=== PATIENT | male | born 1960 | race Caucasian/White ===

== ENCOUNTER 2018-09-13 15:30 | Inpatient (IN) | payer MEDICAID ==
[~2018-09-13] VITALS: Ht 177.8 cm; Wt 70.3 kg
[2018-09-13] MEDS ORDERED: FEE PK DOSING 1 MIN EA MC ONE (15:35)
--- NOTE | 2018-09-13 15:40 | NUR ---
PT RAJEEV FROM THE STREETS FOR A GLF WITNESSED BY BYSTANDER ABRASIONS NOTED TO RIGHT FOREHEAD AND LEFT FOREARM. PT ON MONITOR IN BED 12. AOX1. WILL CONTINUE TO MONITOR.
[2018-09-13] MEDS ORDERED: IV NS 0.9% 1,000 ML BAG IV ONE (16:00)
[2018-09-13] MEDS ORDERED: PIPERACILLIN /TAZOBACTAM 3.375 G in IV D5W 50 ML IV ONE (16:00)
[2018-09-13] MEDS ORDERED: VANCOMYCIN 1 GM in IV D5W 250 ML IV ONE (16:00)
[2018-09-13] MEDS ORDERED: ACETAMINOPHEN 650 MG/SUPP.RECT RC ONE (16:15)
[2018-09-13 16:25] LABS: BASOPHILS # (AUTO) 0.1 /CMM (0.0-0.2); BASOPHILS % (AUTO) 0.4 % (0.0-2.0); EOSINOPHILS % (AUTO) 0.2 % (0.0-6.0); HEMATOCRIT 37 % (39-51); HEMOGLOBIN 12.3 g/dL (13.5-17.5); LYMPHOCYTES # (AUTO) 0.8 /CMM (0.8-4.8); LYMPHOCYTES % (AUTO) 4.6 % (20.0-44.0); MEAN CORPUSCULAR HGB CONC 34 g/dl (31.0-36.0); MEAN CORPUSCULAR VOLUME 100 fL (80-96); MONOCYTES # (AUTO) 0.6 /CMM (0.1-1.30); MONOCYTES % (AUTO) 3.7 % (2.0-12.0); NEUTROPHILS # (AUTO) 15.6 /CMM (1.8-8.9); NEUTROPHILS % (AUTO) 91.1 % (43.0-81.0); PLATELET COUNT (AUTO) 420 /CMM (150-450); RED BLOOD CELL COUNT(AUTO) 3.66 MIL/uL (4.5-6.0); WHITE BLOOD COUNT (AUTO) 17.1 K/uL (4.3-11.0)
[2018-09-13] MEDS ORDERED: ACETAMINOPHEN 325 MG TABLET PO ONE (16:30)
[2018-09-13] MEDS ORDERED: KETOROLAC TROMETHAMINE INJ 30 MG/ML VIAL IV ONE (16:30)
[2018-09-13 16:48] LABS: CALCIUM, SERUM 8.1 mg/dL (8.5-10.1); CARBON DIOXIDE 23 mmol/L (21-32); CHLORIDE 99 mmol/L (98-107); CREATININE 0.9 mg/dL (0.6-1.3); GLUCOSE 112 mg/dL (74-106); POTASSIUM 4.1 mmol/L (3.5-5.1); SODIUM SERUM 133 mmol/L (136-145); UREA NITROGEN, BLOOD 4 mg/dL (7-18)
[2018-09-13] MEDS ORDERED: KETOROLAC TROMETHAMINE INJ 30 MG/ML VIAL ONE (16:51)
[2018-09-13] MEDS ORDERED: ACETAMINOPHEN ES 500 MG TABLET ONE (16:52)
[2018-09-13 16:55] LABS: ALANINE AMINOTRANSFERASE 23 U/L (12-78); ALBUMIN 2.5 g/dL (3.4-5.0); ALKALINE PHOSPHATASE 100 U/L (46-116); ASPARTATE AMINOTRANSFERASE 44 U/L (15-37); BILIRUBIN,DIRECT 0.3 mg/dL (0.0-0.2); TOTAL PROTEIN, SERUM 8.6 g/dL (6.4-8.2)
--- NOTE | 2018-09-13 17:04 | NUR ---
PT TAKEN TO RADIOLOGY FOR CT VIA CHRIS
--- NOTE | 2018-09-13 17:07 | NUR ---
LACTIC ACID 2.0. MD NOTIFED.
--- NOTE | 2018-09-13 17:25 | NUR ---
RADIOLOGY AT BEDSIDE FOR XRAY
[2018-09-13] MEDS ORDERED: HYDROCODONE/APAP 5/325MG 1 EACH TABLET PO PRN (18:30)
[2018-09-13] MEDS ORDERED: Z GUARD REMEDY 2 OZ OINT TP PRN (18:30)
[2018-09-13] MEDS ORDERED: ZOLPIDEM TARTRATE 5 MG TABLET PO PRN (18:30)
[2018-09-13] MEDS ORDERED: ACETAMINOPHEN 325 MG TABLET PO PRN (18:30)
[2018-09-13] MEDS ORDERED: ONDANSETRON HCL/PF 4 MG/2 ML VIAL IVP PRN (18:30)
[2018-09-13] MEDS ORDERED: MAGNESIUM HYDROXIDE 30 ML UDC PO PRN (18:30)
[2018-09-13] MEDS ORDERED: MAG HYDROX/AL HYDROX/SIMETH 30 ML UDC PO PRN (18:30)
--- NOTE | 2018-09-13 19:34 | NUR ---
GAVE REPORT TO CHERELLE QUIROZ FOR AMAURY
--- NOTE | 2018-09-13 22:23 | NUR ---
ANGELIQUE VILLARREALSTUNNER TRANSPORTING PT WITH EMT TO TELE 1ST FLOOR IN GUARDED CONDITION
--- NOTE | 2018-09-13 22:30 | NUR ---
RN ADMITTING TELE NOTES RECEIVED PT FROM ER, REPORT GIVEN BY MOTOR VEHICLE ASSEMBLY SUPERVISOR, ADMITTED FOR SEPSIS, LACTIC 2.0, SEPSIS PROTOCOL INITIATED, DR HUTSON ADMITTING, ORDERS ENTERED PER PROTOCOL, PT AOX3 ON R/A, DENIES ANY PAIN, W/ SKIN ISSUES NOTED PICTURES TAKEN, WOUND CONSULT ORDERED, IV ON RT/AC#18G, NS@100ML/HR TO BE CONT', PT HOMELESS, GROOMED UPON ARRIVAL, ABLE TO AMBULATE FROM [facility], SAFETY MEASURES IN PLACE, ABX IVPB CONT' ORDERED, VS STABLE, CL W//R, WILL CONT TO MONITOR PT LABS.
[2018-09-13 23:03] VITALS: BP 126/80
[2018-09-13] MEDS ORDERED: PIPERACILLIN /TAZOBACTAM 3.375 G VIAL IV ONE (23:49)
[2018-09-13] MEDS ORDERED: VANCOMYCIN 1 GM VIAL ONE (23:50)
[2018-09-14] MEDS: ZOSYN IVPB 3.375 G in IV D5W 50ml IV SCH ×4 (00:12→17:02)
[2018-09-14 00:18] VITALS: BP 124/75
[2018-09-14] MEDS: VANCOMYCIN 0.75 GM in IV D5W 250 ML IV SCH ×4 (00:55→23:04)
[2018-09-14 04:16] VITALS: BP 117/55
--- NOTE | 2018-09-14 06:20 | NUR ---
PRODUCTION MATERIAL HANDLER CLOSING NOTE PT ENDORSED IN STABLE COND', LABS LACTIC TRENDING DOWN, ALL NEEDS ATTENDED, KEPT CLEAN AND DRY, IV FLUIDS CONT' ORDERED.
[2018-09-14 06:39] LABS: BASOPHILS # (AUTO) 0.1 /CMM (0.0-0.2); BASOPHILS % (AUTO) 0.7 % (0.0-2.0); EOSINOPHILS % (AUTO) 0.8 % (0.0-6.0); HEMATOCRIT 32 % (39-51); HEMOGLOBIN 10.9 g/dL (13.5-17.5); LYMPHOCYTES # (AUTO) 0.9 /CMM (0.8-4.8); LYMPHOCYTES % (AUTO) 9.5 % (20.0-44.0); MEAN CORPUSCULAR HGB CONC 34 g/dl (31.0-36.0); MEAN CORPUSCULAR VOLUME 99 fL (80-96); MONOCYTES # (AUTO) 0.7 /CMM (0.1-1.30); MONOCYTES % (AUTO) 6.9 % (2.0-12.0); NEUTROPHILS # (AUTO) 7.9 /CMM (1.8-8.9); NEUTROPHILS % (AUTO) 82.1 % (43.0-81.0); PLATELET COUNT (AUTO) 313 /CMM (150-450); RED BLOOD CELL COUNT(AUTO) 3.21 MIL/uL (4.5-6.0); WHITE BLOOD COUNT (AUTO) 9.7 K/uL (4.3-11.0)
[2018-09-14] MEDS: IV NS 0.9% 1,000 ML IV PRN ×2 (06:42→17:45)
[2018-09-14 06:55] LABS: CALCIUM, SERUM 7.6 mg/dL (8.5-10.1); CREATININE 0.9 mg/dL (0.6-1.3); POTASSIUM 3.5 mmol/L (3.5-5.1)
[2018-09-14 07:02] LABS: MAGNESIUM 1.1 mg/dL (1.8-2.4)
--- NOTE | 2018-09-14 07:30 | NUR ---
MANAGER STEEL NOTE: RECEIVED PATIENT IN BED, AWAKE AND ALERT TO HIS NAME. DENIED ANY PAIN. RESPIRATION EVEN AND UNLABORED SATURATING 98% IN ROOM AIR. ON FILTER TANK TENDER SR HR- 86. HOB ELEVATED AT 35 DEGREE. (R) AC IV SITE REMAINED PATENT AND INTACT WITH NS @100ML/HR. BED ALARMED AND LOCKED AT ALL TIMES. CALL LIGHT WITHIN REACH. NEEDS ANTICIPATED.
[2018-09-14 08:00] VITALS: BP 138/87
[2018-09-14] MEDS: THIAMINE HCL 100 MG TABLET PO SCH (08:04)
[2018-09-14] MEDS: FOLIC ACID 1 MG TABLET PO SCH (08:04)
[2018-09-14] MEDS: MULTIVITAMINS,THERAGRAN 1 UDTAB TABLET PO SCH (08:04)
[2018-09-14] MEDS: Magnesium 1GM/D5W 100ML PREMIX 100 ML IV SCH ×2 (09:18→10:19)
[2018-09-14 16:00] VITALS: BP 128/84
--- NOTE | 2018-09-14 16:30 | NUR ---
MS RN NOTE: PATIENT WAS OBSERVED HAVING EPISODES OF HAVING SOAKED DIAPER AND WAS UNABLE TO USE URINAL WHENEVER HE HAS THE URGE TO URINATE. PLACED A CONDOM CATHETER ON THE PATIENT IN ORDER TO AVOID SKIN BREAKDOWN AND TO PREVENT MOISTURE ON THE AREA. PATIENT WAS OK WITH IT AND TOLERATED THE CONDOM CATHETER INSERTION.
[2018-09-14] MEDS: LACTOBACILLUS RHAMNOSUS GG 1 EACH CAP.SPRINK PO SCH (17:02)
--- NOTE | 2018-09-14 19:30 | NUR ---
MS RN NOTE: REPORT GIVEN TO PM SHIFT NURSE FOR CONTINUITY OF CARE. PATIENT REMAINED ON STABLE CONDITION AND ATE 100% OF HIS DINNER MEAL.
--- NOTE | 2018-09-14 19:48 | NUR ---
MS RN NOTES RECEIVE PT IN BED A/O X 2-3, NO PAIN AT THIS TIME. IN STABLE CONDITION, NOT IN DISTRESS, SAFETY MEASURES IN PLACE. WILL CONTINUE TO MONITOR.
[2018-09-14 20:00] VITALS: BP 147/83
[2018-09-15] MEDS: ZOSYN IVPB 3.375 G in IV D5W 50ml IV SCH ×2 (00:36→05:24)
[2018-09-15 04:00] VITALS: BP 114/65
[2018-09-15] MEDS: IV NS 0.9% 1,000 ML IV PRN (05:24)
--- NOTE | 2018-09-15 06:08 | NUR ---
MS RN CLOSING NOTES REMAINS STABLE. TOLERATING ROOM AIR 98%. ALL NURSING CARE RENDERED. KEPT CLEAN AND DRY AND COMFORTABLE, NEEDS ATTENDED AND ANTICIPATED. GOOD SKIN CARE PROVIDED, ON LOW BED AT ALL TIMES TO ENSURE SAFETY. SAFE HAZARD FREE ENVIRONMENT PROVIDED. CALL LIGHT WITHIN EASY TO REACH. WILL ENDORSE NEXT SHIFT CONTINUITY OF CARE
--- NOTE | 2018-09-15 07:30 | NUR ---
MS RN NOTE: RECEIVED PATIENT IN BED, AWAKE AND ALERT TO HIS NAME. DENIED ANY PAIN. RESPIRATION EVEN AND UNLABORED SATURATING 100% IN ROOM AIR. HOB ELEVATED AT 35 DEGREE. (R) AC IV SITE REMAINED PATENT AND INTACT WITH NS @100ML/HR. BED ALARMED AND LOCKED AT ALL TIMES. CALL LIGHT WITHIN REACH. NEEDS ANTICIPATED. PER PM SHIFT NURSE THE PATIENT REMOVED THE CONDOM CATHETER, AND THE NURSE EDUCATED THE PATIENT TO USE THE URINAL. PATIENT AGREED TO IT AND WILL CONTINUE TO MONITOR.
[2018-09-15 07:48] LABS: CALCIUM, SERUM 7.8 mg/dL (8.5-10.1); CREATININE 0.9 mg/dL (0.6-1.3); POTASSIUM 3.5 mmol/L (3.5-5.1)
[2018-09-15 08:00] VITALS: BP 112/73
[2018-09-15 08:06] LABS: BASOPHILS % (AUTO) 0.7 % (0.0-2.0); HEMATOCRIT 32 % (39-51); HEMOGLOBIN 10.8 g/dL (13.5-17.5); LYMPHOCYTES # (AUTO) 1.1 /CMM (0.8-4.8); LYMPHOCYTES % (AUTO) 16.9 % (20.0-44.0); MEAN CORPUSCULAR HGB CONC 34 g/dl (31.0-36.0); MEAN CORPUSCULAR VOLUME 100 fL (80-96); MONOCYTES # (AUTO) 0.7 /CMM (0.1-1.30); MONOCYTES % (AUTO) 10.7 % (2.0-12.0); NEUTROPHILS # (AUTO) 4.7 /CMM (1.8-8.9); NEUTROPHILS % (AUTO) 69.7 % (43.0-81.0); PLATELET COUNT (AUTO) 338 /CMM (150-450); RED BLOOD CELL COUNT(AUTO) 3.24 MIL/uL (4.5-6.0); WHITE BLOOD COUNT (AUTO) 6.7 K/uL (4.3-11.0)
[2018-09-15 08:14] LABS: MAGNESIUM 1.3 mg/dL (1.8-2.4); PHOSPHORUS 3.5 mg/dL (2.5-4.9)
[2018-09-15] MEDS: VANCOMYCIN 0.75 GM in IV D5W 250 ML IV SCH ×3 (08:39→23:27)
--- NOTE | 2018-09-15 08:40 | NUR ---
MS RN NOTE: CALLED AND SPOKE WITH LISANDRO, PHARMACIST AND MADE HIM AWARE OF THE PATIENT'S VANCOMYCIN TROUGH OF 12. PER LISANDRO, OK TO GIVE THE DOSE OF VANCOMYCIN 0.75 GM IV.
[2018-09-15] MEDS: THIAMINE HCL 100 MG TABLET PO SCH (08:58)
[2018-09-15] MEDS: FOLIC ACID 1 MG TABLET PO SCH (08:58)
[2018-09-15] MEDS: LACTOBACILLUS RHAMNOSUS GG 1 EACH CAP.SPRINK PO SCH ×2 (08:58→16:20)
[2018-09-15] MEDS: MULTIVITAMINS,THERAGRAN 1 UDTAB TABLET PO SCH (08:58)
[2018-09-15] MEDS: Magnesium 1GM/D5W 100ML PREMIX 100 ML IV SCH ×2 (10:48→12:01)
[2018-09-15 16:00] VITALS: BP 162/78
--- NOTE | 2018-09-15 19:30 | NUR ---
MS RN NOTE: REPORT GIVEN TO PM SHIFT NURSE FOR CONTINUITY OF CARE. PATIENT ON STABLE CONDITION. INFORMED PM SHIFT NURSE THAT PATIENT PULLED OUT HIS (R) AC IV SITE AND A NEW LINE WAS INSERTED ON THE (R) FOREARM 20G INFUSING NS @100ML/HR.
[2018-09-15 20:00] VITALS: BP 150/91
[2018-09-16 04:00] VITALS: BP 157/91
--- NOTE | 2018-09-16 07:26 | NUR ---
MS RN OPENING NOTES RECEIVED PT FROM NIGHTSHIFT RN IN STABLE CONDITION. PT IS A/O X2. NO SOB OR ACUTE SIGNS OF DISTRESS NOTED. BREATHING IS EVEN AND UNLABORED. PT ON RA AND SATING WELL. HE DENIES ANY PAIN AT THIS TIME. IV TO RIGHT FA NOTED TO BE PATENT AND INTACT. NO REDNESS OR SIGNS OF INFILTRATION NOTED. WOUND DRESSINGS NOTED TO BE CLEAN, DRY, AND INTACT. DRESSING CHANGE JUST PERFORMED BY PM NURSE. BED IN LOW LOCKED POSITION. SIDE RAILS UP X2, CALL LIGHT WITHIN REACH, BED ALARM ON. WILL CONTINUE TO MONITOR
[2018-09-16 07:28] LABS: BASOPHILS # (AUTO) 0.1 /CMM (0.0-0.2); BASOPHILS % (AUTO) 1.1 % (0.0-2.0); EOSINOPHILS % (AUTO) 2.8 % (0.0-6.0); HEMATOCRIT 35 % (39-51); HEMOGLOBIN 11.6 g/dL (13.5-17.5); LYMPHOCYTES # (AUTO) 1.1 /CMM (0.8-4.8); LYMPHOCYTES % (AUTO) 17.7 % (20.0-44.0); MEAN CORPUSCULAR HGB CONC 34 g/dl (31.0-36.0); MEAN CORPUSCULAR VOLUME 99 fL (80-96); MONOCYTES # (AUTO) 0.6 /CMM (0.1-1.30); MONOCYTES % (AUTO) 10.6 % (2.0-12.0); NEUTROPHILS # (AUTO) 4.1 /CMM (1.8-8.9); NEUTROPHILS % (AUTO) 67.8 % (43.0-81.0); PLATELET COUNT (AUTO) 330 /CMM (150-450); RED BLOOD CELL COUNT(AUTO) 3.48 MIL/uL (4.5-6.0)
[2018-09-16 07:59] LABS: CALCIUM, SERUM 8.1 mg/dL (8.5-10.1); CREATININE 0.8 mg/dL (0.6-1.3); MAGNESIUM 1.3 mg/dL (1.8-2.4); PHOSPHORUS 3.8 mg/dL (2.5-4.9); POTASSIUM 3.8 mmol/L (3.5-5.1)
[2018-09-16 08:00] VITALS: BP 135/82
[2018-09-16] MEDS: LACTOBACILLUS RHAMNOSUS GG 1 EACH CAP.SPRINK PO SCH ×2 (08:18→16:31)
[2018-09-16] MEDS: MULTIVITAMINS,THERAGRAN 1 UDTAB TABLET PO SCH (08:18)
[2018-09-16] MEDS: VANCOMYCIN 0.75 GM in IV D5W 250 ML IV SCH ×2 (08:18→16:31)
[2018-09-16] MEDS: THIAMINE HCL 100 MG TABLET PO SCH (08:18)
[2018-09-16] MEDS: FOLIC ACID 1 MG TABLET PO SCH (08:18)
--- NOTE | 2018-09-16 09:21 | NUR ---
WOUND CARE CONSULT: PT PRESENTS WITH MULTIPLE DRY ABRASIONS AND SCARS TO TRUNK OF BODY AND LEGS/FEET WELL OPEN WOUNDS TO RT HAND AND LEFT ARM, PRESENT ON ADMISSION. RECOMMEND SURGICAL CONSULT. PT ABLE TO ASSIST WITH TURNING AND REPOSITIONING IN BED AND IS CONTINENT AT THIS TIME. WILL SEE PRN. CURRENT OSVALDO SCORE IS 19. MD IN AGREEMENT WITH PLAN OF CARE. Addendum: 09/16/18 at 0922 by JOHN BOYLE WNDNU Amended: Links added.
--- NOTE | 2018-09-16 10:59 | NUR ---
Social service consult requested by Dr. Brandon for homelessness. Pt. is a 58 year old male who was admitted to [facility] for severe sepsis. SW met with pt. bedside. Pt. is alert and oriented x 3. Pt. was polite and cooperative with SW during the assessment. Pt. is homeless. Pt. states he has been homeless for the past 15 years and has been living in between shelters and sober livings. Pt. states he has been living by the amish on [facility] that offers him senior living, food and clothing. Pt. receives approximately $900/ month in SSI. Pt. denies any drug, alcohol and cigarette use. Pt. does have a history of alcohol abuse. Pt. denies any psychiatric diagnosis at this time. SW offered pt. [facility] placement, however pt. declined stating he wants to go back to the [facility]. Pt. states , he is able to transport himself via bus. Pt. couldn't give SW the address to the am[facility] but states he knows how to get there via bus. Pt. states he will need a pair of clothes and shoes upon discharge since he has no clothing. SW to give pt. clothing prior to discharge. Pt. to sign Homeless Patient Waiver form prior to discharge. No other social service needs are requested at this time. SW is available, if needed.
[2018-09-16] MEDS: Magnesium 1GM/D5W 100ML PREMIX 100 ML IV SCH ×2 (11:41→13:01)
[2018-09-16 16:00] VITALS: BP 155/97
--- NOTE | 2018-09-16 18:31 | NUR ---
MS RN CLOSING NOTES PT REMAINS STABLE. ALL NEEDS MET DURING SHIFT AND ORDERS CARRIED OUT ACCORDINGLY. ALL DUE MEDS GIVEN . PRN AND WOUND CARE COMPLETED. DRESSINGS REMAINS CLEAN, DRY AND INTACT. IV REMAINS PATENT AND INTACT. SAFETY MEARES IN PLACE. WILL ENDORSE TO NIGHTSHIFT RN FOR AMAURY
--- NOTE | 2018-09-16 19:20 | NUR ---
MS RN OPENING NOTES RECEIVED PT FROM AM RN IN STABLE CONDITION. PT IS A/O X2 WITH PERIODS OF CONFUSION. . NO SOB OR ACUTE SIGNS OF DISTRESS NOTED. BREATHING IS EVEN AND UNLABORED. PT ON RA AND SATING WELL. HE DENIES ANY PAIN AT THIS TIME. IV TO RIGHT FA NOTED, PATENT AND INTACT. NO REDNESS OR SIGNS OF INFILTRATION NOTED. LEFT HAND WOUND DRESSINGS CLEAN, DRY, AND INTACT. BED IN LOW LOCKED POSITION. SIDE RAILS UP X2, CALL LIGHT WITHIN REACH, BED ALARM ON. WILL CONTINUE TO MONITOR CLOSELY.
[2018-09-16 20:00] VITALS: BP 141/69
[2018-09-17] MEDS: VANCOMYCIN 0.75 GM in IV D5W 250 ML IV SCH ×2 (00:13→08:00)
[2018-09-17 04:00] VITALS: BP 157/77
[2018-09-17 06:14] LABS: BASOPHILS % (AUTO) 1.1 % (0.0-2.0); EOSINOPHILS % (AUTO) 3.8 % (0.0-6.0); HEMATOCRIT 34 % (39-51); HEMOGLOBIN 11.4 g/dL (13.5-17.5); LYMPHOCYTES # (AUTO) 1.3 /CMM (0.8-4.8); LYMPHOCYTES % (AUTO) 29.6 % (20.0-44.0); MEAN CORPUSCULAR HGB CONC 34 g/dl (31.0-36.0); MEAN CORPUSCULAR VOLUME 99 fL (80-96); MONOCYTES # (AUTO) 0.7 /CMM (0.1-1.30); MONOCYTES % (AUTO) 16.4 % (2.0-12.0); NEUTROPHILS # (AUTO) 2.2 /CMM (1.8-8.9); NEUTROPHILS % (AUTO) 49.1 % (43.0-81.0); PLATELET COUNT (AUTO) 333 /CMM (150-450); RED BLOOD CELL COUNT(AUTO) 3.41 MIL/uL (4.5-6.0); WHITE BLOOD COUNT (AUTO) 4.5 K/uL (4.3-11.0)
--- NOTE | 2018-09-17 06:18 | NUR ---
MS RN CLOSING NOTES PATIENT REMAINS STABLE THROUGH OUT THE NIGHT. TOLERATING ROOM AIR 96%. ALL NURSING CARE RENDERED. KEPT CLEAN AND DRY AND COMFORTABLE, NEEDS ATTENDED AND ANTICIPATED. GOOD SKIN CARE PROVIDED, ON LOW BED AT ALL TIMES TO ENSURE SAFETY. SAFE HAZARD FREE ENVIRONMENT PROVIDED. CALL LIGHT WITHIN EASY TO REACH. WILL ENDORSE NEXT SHIFT CONTINUITY OF CARE
[2018-09-17 06:24] LABS: CALCIUM, SERUM 8.3 mg/dL (8.5-10.1); CREATININE 0.8 mg/dL (0.6-1.3); POTASSIUM 3.8 mmol/L (3.5-5.1)
[2018-09-17 08:00] VITALS: BP 168/94
[2018-09-17] MEDS ORDERED: NEOMY SULF/BACITRAC ZN/POLY 15 GM TUBE TP SCH (09:00)
[2018-09-17] MEDS: FOLIC ACID 1 MG TABLET PO SCH (09:00)
[2018-09-17] MEDS: THIAMINE HCL 100 MG TABLET PO SCH (09:00)
[2018-09-17] MEDS: MULTIVITAMINS,THERAGRAN 1 UDTAB TABLET PO SCH (09:00)
[2018-09-17] MEDS: LACTOBACILLUS RHAMNOSUS GG 1 EACH CAP.SPRINK PO SCH (09:00)
--- NOTE | 2018-09-17 11:47 | NUR ---
RECEIVED PT FROM AM RN IN STABLE CONDITION. PT IS A/O X2 WITH PERIODS OF CONFUSION. . NO SOB OR ACUTE SIGNS OF DISTRESS NOTED. BREATHING IS EVEN AND UNLABORED. PT ON RA AND SATING WELL. HE DENIES ANY PAIN AT THIS TIME. IV TO RIGHT FA NOTED, PATENT AND INTACT. NO REDNESS OR SIGNS OF INFILTRATION NOTED. LEFT HAND WOUND DRESSINGS CLEAN, DRY, AND INTACT. BED IN LOW LOCKED POSITION. SIDE RAILS UP X2, CALL LIGHT WITHIN REACH, BED ALARM ON. WILL CONTINUE TO MONITOR and treat.
[2018-09-17] MEDS ORDERED: SULF1TAB48 PO (11:59)
--- NOTE | 2018-09-17 13:00 | NUR ---
SW met with pt. and gave him some clothing and shoes. Pt. was given the following resources: [phone] [facility] list which included roller picker location at [address] for a van to roller picker pt. for [facility]; list of Food referrals and list of medical clinics as well. CAMILO offered pt. taxi voucher to roller picker location, however pt. declined and preferred to get bus tokens. Homeless Patient Waiver form was signed by the pt. and placed in pt's chart. No other social service needs are requested at this time. SW is available, if needed. CAMILO updated KAYCEE Baldwin regarding pt's discharge plan. Nursing shift supervisor rn Rhonda was informed regarding bus tokens.
--- NOTE | 2018-09-17 13:05 | NUR ---
patient for discharge to senior care,unable to finish discharge photo pt. refused and doesnt want to be bothered verbalized"I AM LEAVING NOW",explained the importance of discharge photo documentation still refused.discharge paper and prescription given,director social discussed w/ pt. senior care and agreed to leave with bus token.
--- NOTE | 2018-09-17 13:20 | NUR ---
patient discharged in stable condition. Patient told to follow up with primary care provider in 1 week. Patient verbalized understanding. All belongings sent home with patient. Patient given bus tokins and wheeled out of the hospital. Patient left in stable condition.
== END 2018-09-17 13:24 | disposition home or self-care (01) | DRG 710 ==
LOC: ER 15:34 → TELE1 19:43 → MEDSG1 09-14 08:48
PROVIDERS: ADMIT Internal Medicine; ATTEND Internal Medicine
PROC: 0KBB0ZZ Excision of Left Lower Arm and Wrist Muscle, Open Approach (ICD-10-PCS; principal; 2018-09-16)
DX: A41.9 Sepsis, unspecified organism (principal); G92 Toxic encephalopathy; E43 Unspecified severe protein-calorie malnutrition; E83.42 Hypomagnesemia; D64.9 Anemia, unspecified; E87.1 Hypo-osmolality and hyponatremia; Z59.0 Homelessness; E86.1 Hypovolemia; E88.09 Other disorders of plasma-protein metabolism, not elsewhere classified; M62.50 Muscle wasting and atrophy, not elsewhere classified, unspecified site; Z68.22 Body mass index [BMI] 22.0-22.9, adult; F10.21 Alcohol dependence, in remission; X58.XXXA Exposure to other specified factors, initial encounter; Y93.9 Activity, unspecified; Y92.9 Unspecified place or not applicable; S71.001A Unspecified open wound, right hip, initial encounter; L03.114 Cellulitis of left upper limb; L98.8 Other specified disorders of the skin and subcutaneous tissue; S51.812A Laceration without foreign body of left forearm, initial encounter; S01.00XA Unspecified open wound of scalp, initial encounter; S51.811A Laceration without foreign body of right forearm, initial encounter; S41.001A Unspecified open wound of right shoulder, initial encounter
CPT/HCPCS: 36415; 70450-TC; 71045-TC; 72125-TC; 73090-TC; 73130-TC; 80048-TC; 80076-TC; 80202-TC; 83605-TC; 83735-TC; 84100-TC; 84484-TC; 85025-TC; 85730-TC; 87040-TC; 87081-TC; A4217; A4349; A4606; A6253; A6403; G0378; J1885; J2543; J3370; J3475; J7030; J7060; Z7610

== ENCOUNTER 2019-12-02 13:46 | Inpatient (IN) | payer MEDICAID, OTHER ==
[~2019-12-02] VITALS: Ht 182.9 cm; Wt 68.5 kg
[~2019-12-02 13:46] MED LIST: SULF1TAB48 PO
--- NOTE | 2019-12-02 13:46 | NUR ---
BIB RA 39,SHOULDER PAIN AND LACERATION TO LEFT EYEBROW,S/P WITNESSED GLF AT A SIDEWALK,W/ HARD COLLAR UPON ARRIVAL, pt to bed 7, awake, alert, -sob, placed on monitor, vss, nad noted. pending md abraham
[2019-12-02] MEDS ORDERED: IV NS 0.9% 1,000 ML BAG IV ONE ×2 (14:30→17:30)
[2019-12-02] MEDS ORDERED: TDAP [DIPH/PERTUSSIS/TET] 0.5 ML VIAL IM ONE ×2 (14:30→14:44)
[2019-12-02 15:14] LABS: CALCIUM, SERUM 8.3 mg/dL (8.5-10.1); CARBON DIOXIDE 22 mmol/L (21-32); CHLORIDE 100 mmol/L (98-107); CREATININE 1.5 mg/dL (0.6-1.3); GLUCOSE 124 mg/dL (74-106); POTASSIUM 3.5 mmol/L (3.5-5.1); SODIUM SERUM 134 mmol/L (136-145); UREA NITROGEN, BLOOD 11 mg/dL (7-18)
[2019-12-02 15:15] LABS: BASOPHILS # (AUTO) 0.3 /CMM (0.0-0.2); EOSINOPHILS % (AUTO) 0.2 % (0.0-6.0); HEMATOCRIT 37 % (39-51); HEMOGLOBIN 12.5 g/dL (13.5-17.5); LYMPHOCYTES # (AUTO) 0.7 /CMM (0.8-4.8); LYMPHOCYTES % (AUTO) 5.6 % (20.0-44.0); MEAN CORPUSCULAR HGB CONC 34 g/dl (31.0-36.0); MEAN CORPUSCULAR VOLUME 99 fL (80-96); MONOCYTES # (AUTO) 1.4 /CMM (0.1-1.30); MONOCYTES % (AUTO) 11.4 % (2.0-12.0); NEUTROPHILS # (AUTO) 10.3 /CMM (1.8-8.9); NEUTROPHILS % (AUTO) 80.8 % (43.0-81.0); PLATELET COUNT (AUTO) 287 /CMM (150-450); RED BLOOD CELL COUNT(AUTO) 3.71 MIL/uL (4.5-6.0); WHITE BLOOD COUNT (AUTO) 12.7 K/uL (4.3-11.0)
[2019-12-02 15:21] LABS: ACETAMINOPHEN < 2 ug/ml (10-30); ALANINE AMINOTRANSFERASE 33 U/L (12-78); ALBUMIN 2.4 g/dL (3.4-5.0); ALCOHOL, BLOOD 9 mg/dL (0-0); ALKALINE PHOSPHATASE 83 U/L (46-116); ASPARTATE AMINOTRANSFERASE 51 U/L (15-37); BILIRUBIN,DIRECT 0.5 mg/dL (0.0-0.2); BILIRUBIN,TOTAL 1.3 mg/dL (0.2-1.0); SALICYLATE < 2.8 mg/dL (2.8-20.0); TOTAL PROTEIN, SERUM 7.4 g/dL (6.4-8.2)
[2019-12-02 15:58] LABS: BAND % (MANUAL) 8 % (0.0-5.0); LYMPHOCYTES % (MANUAL) 10 % (16-48); MONOCYTES % (MANUAL) 10 % (0-11.0); NEUTROPHILS % (MANUAL) 72 (42-76)
[2019-12-02 16:17] LABS: APPEARANCE,URINE Slightly Cloudy (CLEAR); BILIRUBIN,URINE SMALL (NEGATIVE); BLOOD, URINE Moderate Ery/uL (NEGATIVE); KETONES,URINE 15 (NEGATIVE); LEUKOCYTE ESTERASE ,URINE Small (NEGATIVE); NITRITE, URINE Positive (NEGATIVE); PROTEIN,URINE 100 mg/dl (NEGATIVE); UGLUCOSE Negative (NEGATIVE)
[2019-12-02 16:18] LABS: COLOR,URINE RED (YELLOW)
[2019-12-02 16:26] LABS: BACTERIA,URINE Moderate /HPF (None Seen); SQUAMOUS EPITHELIAL CELL,UR Few /HPF (None Seen)
[2019-12-02] MEDS ORDERED: LIDOCAINE 1%-EPI 1:100,000 20 ML VIAL TP ONE (16:30)
[2019-12-02] MEDS ORDERED: LIDOCAINE 1%-EPI 1:100,000 20 ML VIAL ONE (16:36)
--- NOTE | 2019-12-02 16:37 | NUR ---
bonp pa at bedside for laceration repair
[2019-12-02] MEDS ORDERED: CEFTRIAXONE 1 G in IV D5W 50 ML IV ONE (17:00)
[2019-12-02] MEDS ORDERED: CEFTRIAXONE 1GM BAG (ER ONLY) 50 ML IV ONE (17:08)
--- NOTE | 2019-12-02 17:12 | NUR ---
GAVE MOVESHEET TO ADMITTING FOR INSURANCE AUTH
--- NOTE | 2019-12-02 18:42 | NUR ---
CALLED [facility] PAGED MICHAEL RAY
--- NOTE | 2019-12-02 20:05 | NUR ---
117-1 [facility] / [facility]
[2019-12-02 21:00] VITALS: BP 156/79
--- NOTE | 2019-12-02 21:05 | NUR ---
REPORT GIVEN TO RAYMOND VILLARREAL FOR AMAURY; PT TRANSPORTED TO 1ST FLOOR
--- NOTE | 2019-12-02 21:30 | NUR ---
MS RN OPENING NOTES, RECEIVED PATIENT FROM ER VIA STRETCHER. AWAKE, A/O X3. PATIENT IS HOMELESS. BED BATH GIVEN APAN ARRIVAL. MULTIPLE BRUISES AROUND THE BODY DUE TO FALL. UTI DIAGNOSES. ON RA SATURATING WELL 97%, NO SOB OR ACUTE DISTRESS NOTED AT THIS TIME. IV ACCESS ON RAC #18 FLUSHED AND PATENT. NO INFILTRATION NOTED. VS WITHIN NORMAL. PATIENT IS UNABLE TO PROVIDE PAST HX. COMPLAIN OF LEFT EYEBROW, LEFT SHOULDER, PAIN. ALL SAFETY MEASURES IN PLACE, CALL LIGHT WITHIN REACH, BED IN LOW/LOCKED POSITION, WILL CONTINUE TO MONITOR
[2019-12-02] MEDS ORDERED: ACETAMINOPHEN 325 MG TABLET PO PRN (22:30)
[2019-12-02] MEDS ORDERED: Z GUARD REMEDY 2 OZ OINT TP PRN (22:30)
[2019-12-02] MEDS ORDERED: HYDROCODONE/APAP 5/325MG 1 EACH TABLET PO PRN (22:30)
[2019-12-02] MEDS ORDERED: ONDANSETRON HCL/PF 4 MG/2 ML VIAL IVP PRN (22:30)
[2019-12-02] MEDS ORDERED: ZOLPIDEM TARTRATE 5 MG TABLET PO PRN (22:30)
[2019-12-02] MEDS ORDERED: LORAZEPAM 1 MG TABLET PO PRN (22:30)
[2019-12-03] MEDS: IV NS 0.9% 1,000 ML IV PRN (02:52)
[2019-12-03 04:00] VITALS: BP 121/81
[2019-12-03 06:57] LABS: BASOPHILS # (AUTO) 0.1 /CMM (0.0-0.2); BASOPHILS % (AUTO) 0.5 % (0.0-2.0); EOSINOPHILS % (AUTO) 0.1 % (0.0-6.0); HEMATOCRIT 36 % (39-51); HEMOGLOBIN 12.5 g/dL (13.5-17.5); LYMPHOCYTES # (AUTO) 1.2 /CMM (0.8-4.8); LYMPHOCYTES % (AUTO) 11.2 % (20.0-44.0); MEAN CORPUSCULAR HGB CONC 34 g/dl (31.0-36.0); MEAN CORPUSCULAR VOLUME 98 fL (80-96); MONOCYTES # (AUTO) 1.5 /CMM (0.1-1.30); MONOCYTES % (AUTO) 14.9 % (2.0-12.0); NEUTROPHILS # (AUTO) 7.6 /CMM (1.8-8.9); NEUTROPHILS % (AUTO) 73.3 % (43.0-81.0); PLATELET COUNT (AUTO) 249 /CMM (150-450); RED BLOOD CELL COUNT(AUTO) 3.72 MIL/uL (4.5-6.0); WHITE BLOOD COUNT (AUTO) 10.3 K/uL (4.3-11.0)
[2019-12-03 07:14] LABS: ALBUMIN 2.1 g/dL (3.4-5.0); BILIRUBIN,TOTAL 1.1 mg/dL (0.2-1.0); CALCIUM, SERUM 7.9 mg/dL (8.5-10.1); CREATININE 1.2 mg/dL (0.6-1.3); PHOSPHORUS 2.1 mg/dL (2.5-4.9); POTASSIUM 3.7 mmol/L (3.5-5.1); TOTAL PROTEIN, SERUM 7.2 g/dL (6.4-8.2)
[2019-12-03 07:16] LABS: MAGNESIUM 1.3 mg/dL (1.8-2.4)
--- NOTE | 2019-12-03 07:30 | NUR ---
RN MS NOTES PT IN BED, AWAKE, ALERT AND ORIENTED, DENIES PAIN, NOT IN DISTRESS, CALL LIGHT WITHIN REACH, IV FLUIDS INFUSING WELL, BREAKFAST SERVED, TOLERATES WELL, NEEDS ATTENDED.
--- NOTE | 2019-12-03 07:54 | NUR ---
MS RN CLOSING NOTES, PATIENT IN BED RESTING. A/O X3. PATIENT IS HOMELESS. ON RA SATURATING WELL 97%, NO SOB OR ACUTE DISTRESS NOTED AT THIS TIME. IV ACCESS ON RAC #18 FLUSHED AND PATENT. NO INFILTRATION NOTED. VS WITHIN NORMAL. PATIENT IS UNABLE TO PROVIDE PAST HX. NO COMPLAIN OF PAIN AT THIS AT TIME. ALL SAFETY MEASURES IN PLACE, CALL LIGHT WITHIN REACH, BED IN LOW/LOCKED POSITION, ENDORSED THE PATIENT TO AM RN FOR AMAURY.
[2019-12-03 08:00] VITALS: BP 128/75
[2019-12-03] MEDS: PANTOPRAZOLE 40 MG TABLET.DR PO SCH (08:44)
[2019-12-03] MEDS: THIAMINE HCL 100 MG TABLET PO SCH (08:44)
[2019-12-03] MEDS: FOLIC ACID 1 MG TABLET PO SCH (08:44)
--- NOTE | 2019-12-03 10:20 | NUR ---
WOUND CARE CONSULT: PT PRESENTS WITH MULTIPLE SKIN ISSUES INCLUDING SACRAL STAGE 2 ULCER, BILATERAL HIP INTACT DEEP TISSUE INJURIES, LEFT FOREHEAD/EYEBROW CLOSED LACERATION, LEFT KNEE INTACT BLISTER, VERY LONG TOENAILS WHICH ARE CURLING AND CALLUSES WITH ODOR TO FEET, PRESENT ON ADMISSION. RECOMMEND DPM CONSULT. DR DENTON NOTIFIED OF CONSULT REQUEST. RECOMMENDATIONS MADE FOR SKIN PROTECTION AND WOUND CARE. DISCUSSED WITH NURSING STAFF. AARTI ISOFLEX LOW AIRLOSS MATTRESS TO BE PLACED. IN AGREEMENT WITH PLAN OF CARE. WILL SEE PRN. CURRENT OSVALDO SCORE IS 15. Addendum: 12/03/19 at 1025 by JOHN HUFF Amended: Links added. Addendum: 12/03/19 at 1028 by JOHN HUFF SURGICAL CONSULT ALSO REQUESTED FROM DR DE LEON. NOTIFIED.
[2019-12-03] MEDS ORDERED: HYDROGEL DRESSING 90 GM TUBE TP PRN (10:30)
[2019-12-03] MEDS: Magnesium 1GM/D5W 100ML PREMIX 100 ML IV SCH ×4 (11:01→15:16)
[2019-12-03] MEDS ORDERED: K PHOS NEUTRAL 250 MG TABLET PO ONE (12:30)
--- NOTE | 2019-12-03 12:55 | NUR ---
Social service consult requested by MD for homelessness. Per MD notes, pt is a 59-year-old male with a history of heavy alcohol use and homelessness who presented to the emergency department via EMS after the patient sustained mechanical trip and fall hitting the left side of face on sidewalk. Patient sustained laceration slightly superior to left eyebrow, which was repaired in ED. Patient evaluated at bedside in ED, laceration repair noted with no bleeding noted. Patient admits to drinking alcohol earlier today before fall. ETL ARCHITECT met with the pt bedside. ETL ARCHITECT introduced self and purpose of the visit. Pt is alert and oriented x 4. Pt appears unkempt and disheveled. pt has a laceration on his left eyebrow from a fall. Pt reports, he has been homeless for 10 years. Pt lives [address] the [address] in [place]. Pt receives GR. Pt was receiving food stamps but currently does not. ETL ARCHITECT encouraged pt to reapply for food stamps. Pt reports to drinking alcohol. Pt drank 2 24 ounces of beer yesterday prior to coming to ED. Pt denies drug and tobacco use. Pt denies any SI/HI and auditory and visual hallucinations. ETL ARCHITECT offered pt winter senior care placement, however, pt declined. Pt reports to wanting to go back to [place]. ETL ARCHITECT to provide pt. with homeless packet prior to discharge.
--- NOTE | 2019-12-03 13:00 | NUR ---
RN MS NOTES PT IN BED, ASLEEP, EASY TO AROUSE, ALERT AND ORIENTED, DENIES PAIN, NO BLEEDING NOTED TO LEFT FOREHEAD LACERATION, CALL LIGHT WITHIN REACH, IV FLUIDS INFUSING WELL.
[2019-12-03] MEDS: HYDROGEL DRESSING 90 GM TUBE TP SCH (13:04)
[2019-12-03 16:00] VITALS: BP 147/92
[2019-12-03] MEDS: VITAMINS A AND D 56.7 GM TUBE TP SCH (16:44)
[2019-12-03] MEDS: CEFTRIAXONE 1 G in IV D5W 50 ML IV SCH (16:44)
[2019-12-03] MEDS: NEOMY SULF/BACITRAC ZN/POLY 15 GM TUBE TP SCH (16:44)
--- NOTE | 2019-12-03 18:14 | NUR ---
RN MS NOTES PT IN BED, AWAKE, ALERT AND ORIENTED, NO COMPLAINT OF PAIN, NOT IN DISTRESS, TOLERATES CURRENT DIET, SEEN BY MOBILE PARAMEDICAL EXAMINER TODAY, IV FLUIDS INFUSING WELL, DUE MEDS GIVEN ORDERED, ALL NEEDS ATTENDED.
--- NOTE | 2019-12-03 19:30 | NUR ---
RN NOTES RECEIVED PATIENT ALERT AWAKE RESTING COMFORTABLY. BREATHING NORMAL NO SOB NOTED. SKIN WARM AND DRY TO TOUCH. DENIES ANY PAIN OR DISCOMFORT AT THIS TIME. IV SITE RAC INTACT PATENT FLUSHED WELL. ALL SAFETY MEASURES IN PLACE. CALL LIGHT WITHIN REACH. BED IN LOW AND LOCKED POSITION. WILL CONT TO MONITOR.
[2019-12-04] VITALS (7 sets, daily range): BP systolic 139–173; BP diastolic 81–102
--- NOTE | 2019-12-04 04:00 | NUR ---
RN NOTES RECEIVED CALL FROM LAB TALKED TO JUANJOSE BLOOD CULTURE GRAM POSITIVE PRELIMINARY COCCI IN CL[facility]ERS. WILL NOTIFY
--- NOTE | 2019-12-04 05:15 | NUR ---
RN NOTES PAGE MD GARCIA REPORTED LAB RESULTS. NEW ORDER RECEIVED FOR [facility]ARM[facility]Y DOSE. ORDER NOTED AND CARRIED OUT. PATIENT AWARE.
[2019-12-04] MEDS: IV NS 0.9% 1,000 ML IV PRN (05:47)
[2019-12-04 06:21] LABS: BASOPHILS % (AUTO) 0.4 % (0.0-2.0); EOSINOPHILS % (AUTO) 0.4 % (0.0-6.0); HEMATOCRIT 35 % (39-51); HEMOGLOBIN 12.1 g/dL (13.5-17.5); LYMPHOCYTES # (AUTO) 1.1 /CMM (0.8-4.8); LYMPHOCYTES % (AUTO) 14.1 % (20.0-44.0); MEAN CORPUSCULAR HGB CONC 35 g/dl (31.0-36.0); MEAN CORPUSCULAR VOLUME 97 fL (80-96); MONOCYTES # (AUTO) 1.1 /CMM (0.1-1.30); MONOCYTES % (AUTO) 13.7 % (2.0-12.0); NEUTROPHILS # (AUTO) 5.6 /CMM (1.8-8.9); NEUTROPHILS % (AUTO) 71.4 % (43.0-81.0); PLATELET COUNT (AUTO) 247 /CMM (150-450); RED BLOOD CELL COUNT(AUTO) 3.56 MIL/uL (4.5-6.0); WHITE BLOOD COUNT (AUTO) 7.9 K/uL (4.3-11.0)
[2019-12-04 06:50] LABS: CALCIUM, SERUM 7.9 mg/dL (8.5-10.1); CREATININE 1.1 mg/dL (0.6-1.3); MAGNESIUM 1.5 mg/dL (1.8-2.4); PHOSPHORUS 2.9 mg/dL (2.5-4.9); POTASSIUM 3.4 mmol/L (3.5-5.1)
--- NOTE | 2019-12-04 07:05 | NUR ---
RN NOTES PATIENT IN BED RESTING COMFORTABLY. BREATHING NORMAL NO SOB NOTED. ON RA SATURATING WELL 98%, NO SOB OR ACUTE DISTRESS NOTED AT THIS TIME. DENIES ANY PAIN OR DISCOMFORT AT THIS TIME. IV ACCESS ON RAC #18 FLUSHED AND PATENT. NO INFILTRATION NOTED. VS WITHIN NORMAL. ALL SAFETY MEASURES IN PLACE, CALL LIGHT WITHIN REACH, BED IN LOW/LOCKED POSITION, ENDORSED THE PATIENT TO AM NURSE.
[2019-12-04] MEDS ORDERED: VANCOMYCIN 1 GM in IV D5W 250 ML IV ONE (07:30)
[2019-12-04] MEDS ORDERED: VANCOMYCIN IV ONE (07:30)
[2019-12-04] MEDS ORDERED: D5W IV ONE (07:30)
--- NOTE | 2019-12-04 07:49 | NUR ---
Handoff from Kelly Tran RN. Axel Mays
[2019-12-04] MEDS: PANTOPRAZOLE 40 MG TABLET.DR PO SCH (07:58)
[2019-12-04] MEDS ORDERED: FEE PK DOSING 1 MIN EA MC ONE (08:21)
[2019-12-04] MEDS: VITAMINS A AND D 56.7 GM TUBE TP SCH ×2 (08:42→16:34)
[2019-12-04] MEDS: FOLIC ACID 1 MG TABLET PO SCH (08:42)
[2019-12-04] MEDS: THIAMINE HCL 100 MG TABLET PO SCH (08:42)
[2019-12-04] MEDS: HYDROGEL DRESSING 90 GM TUBE TP SCH (08:42)
[2019-12-04] MEDS: NEOMY SULF/BACITRAC ZN/POLY 15 GM TUBE TP SCH (08:59)
--- NOTE | 2019-12-04 11:28 | NUR ---
Feet washing with a&d cream application. Patient up to walk with physical therapy. Therapist request to have a walker ordered for discharge. Patient linens changed. Patient is requesting to wash his hair in the shower. Axel Mays RN
[2019-12-04] MEDS ORDERED: POTASSIUM CHLORIDE 10 MEQ TABLET.SA PO ONE (12:30)
[2019-12-04] MEDS: Magnesium 1GM/D5W 100ML PREMIX 100 ML IV SCH ×3 (13:22→15:23)
[2019-12-04] MEDS: VANCOMYCIN 0.75 GM in IV D5W 250 ML IV SCH (16:04)
[2019-12-04] MEDS: CEFTRIAXONE 1 G in IV D5W 50 ML IV SCH (17:21)
[2019-12-05] MEDS: VANCOMYCIN 0.75 GM in IV D5W 250 ML IV SCH ×4 (00:37→23:52)
[2019-12-05] MEDS: IV NS 0.9% 1,000 ML IV PRN ×2 (02:06→17:20)
[2019-12-05 04:00] VITALS: BP 145/77
--- NOTE | 2019-12-05 07:10 | NUR ---
MS RN NOTES PATIENT IN BED ALERT ORIENTED X3. NO ACUTE DISTRESS NOTED, BREATHING UNLABORED. NO SOB NOTED. IV ACCESS PATENT AND INTACT, NO REDNESS OR SWELLING NOTED. SAFETY MEASURES IN PLACE. CALL LIGHT WITHIN REACH. WILL CONTINUE TO MONITOR ACCORDINGLY.
[2019-12-05 07:21] LABS: CALCIUM, SERUM 8.2 mg/dL (8.5-10.1); POTASSIUM 3.4 mmol/L (3.5-5.1)
[2019-12-05] MEDS: PANTOPRAZOLE 40 MG TABLET.DR PO SCH (07:41)
[2019-12-05 08:00] VITALS: BP 152/92
[2019-12-05] MEDS: FOLIC ACID 1 MG TABLET PO SCH (08:16)
[2019-12-05] MEDS: THIAMINE HCL 100 MG TABLET PO SCH (08:16)
[2019-12-05] MEDS: HYDROGEL DRESSING 90 GM TUBE TP SCH (08:17)
[2019-12-05] MEDS: NEOMY SULF/BACITRAC ZN/POLY 15 GM TUBE TP SCH (08:18)
[2019-12-05] MEDS: VITAMINS A AND D 56.7 GM TUBE TP SCH ×2 (08:18→17:19)
[2019-12-05] MEDS ORDERED: POTASSIUM CHLORIDE 20 MEQ TAB.PRT.SR PO SCH (11:00)
[2019-12-05 12:00] VITALS: BP 135/89
[2019-12-05 16:00] VITALS: BP 152/89
[2019-12-05] MEDS: CEFTRIAXONE 1 G in IV D5W 50 ML IV SCH (17:18)
--- NOTE | 2019-12-05 19:00 | NUR ---
MS RN NOTES PATIENT IN BED ALERT ORIENTED X3. NO ACUTE DISTRESS NOTED, BREATHING UNLABORED. NO SOB NOTED. IV ACCESS PATENT AND INTACT, NO REDNESS OR SWELLING NOTED. NEEDS ATTENDED AND ANTICIPATED. SAFETY MEASURES IN PLACE. CALL LIGHT WITHIN REACH. WILL ENDORSE TO NIGHT NURSE FOR CONTINUITY OF CARE.
[2019-12-05 20:00] VITALS: BP 156/97
--- NOTE | 2019-12-05 20:00 | NUR ---
BIOFUELS TECHNOLOGY MANAGER: RECEIVED REPORT FROM RN GIRISH, LAST MINUTE CHANGED OF ASSIGNMENT. PT IN BED, AWAKE, A/O X3, ON RA RESPIRATIONS EVEN AND UNLABORED. IV ACCESS PATENT AND FLUSHING WELL, INFUSING WITH NS AT 100 ML/HR. PT USES URINAL. DENIES ANY PAIN OR DISCOMFORT AT THIS TIME. SAFETY PRECAUTIONS FOR FALL INITIATED, CALL LIGHT IN REACH, WILL CONTINUE MONITORING PT.
[2019-12-06 04:00] VITALS: BP 148/81
--- NOTE | 2019-12-06 06:39 | NUR ---
end of shift report: pt remains a/o x3, on ra denies any pain or discomfort throughout the shift. iv access remains patent and flushing well, infusing with ns at 100ml/hr. wound care and am care provided. safety precautions for fall remains engaged, call light in reach, will endorse to day rn for continuity of care.
[2019-12-06] MEDS: PANTOPRAZOLE 40 MG TABLET.DR PO SCH (07:27)
[2019-12-06] MEDS: VANCOMYCIN 0.75 GM in IV D5W 250 ML IV SCH (07:27)
[2019-12-06 07:29] LABS: CALCIUM, SERUM 8.1 mg/dL (8.5-10.1); CREATININE 0.8 mg/dL (0.6-1.3); POTASSIUM 3.7 mmol/L (3.5-5.1)
[2019-12-06 08:00] VITALS: BP_SYST 135; BP_DIAS 95; BP_DIAS 96
[2019-12-06] MEDS: THIAMINE HCL 100 MG TABLET PO SCH (08:22)
[2019-12-06] MEDS: FOLIC ACID 1 MG TABLET PO SCH (08:22)
[2019-12-06] MEDS: HYDROGEL DRESSING 90 GM TUBE TP SCH (08:23)
[2019-12-06] MEDS: VITAMINS A AND D 56.7 GM TUBE TP SCH (08:23)
[2019-12-06] MEDS: NEOMY SULF/BACITRAC ZN/POLY 15 GM TUBE TP SCH (08:23)
[2019-12-06] MEDS ORDERED: CEPH-570 PO (13:51)
--- NOTE | 2019-12-06 14:20 | NUR ---
RN CLOSING NOTE PATIENT DISCHARGED TO SKILLED NURSING. TAP CARD GIVEN. IV SITE REMOVED. PAPERWORK COMPLETED AND SIGNED. ID BAND REMOVED. OBTAINED CLOTHES FROM NURSING PHARMACY INTAKE TECHNICIAN.
== END 2019-12-06 14:16 | disposition home or self-care (01) | DRG 775 ==
LOC: ER 13:48 → MEDSG1 20:12
PROVIDERS: ADMIT Hospitalist
PROC: 0HQ1XZZ Repair Face Skin, External Approach (ICD-10-PCS; principal; 2019-12-02)
PROC: 0HBRXZZ Excision of Toe Nail, External Approach (ICD-10-PCS; 2019-12-03)
DX: F10.239 Alcohol dependence with withdrawal, unspecified (principal); N17.0 Acute kidney failure with tubular necrosis; J90 Pleural effusion, not elsewhere classified; L89.152 Pressure ulcer of sacral region, stage 2; E46 Unspecified protein-calorie malnutrition; M84.48XA Pathological fracture, other site, initial encounter for fracture; D53.9 Nutritional anemia, unspecified; S40.212A Abrasion of left shoulder, initial encounter; N39.0 Urinary tract infection, site not specified; B96.20 Unspecified Escherichia coli [E. coli] as the cause of diseases classified elsewhere; E51.9 Thiamine deficiency, unspecified; E86.0 Dehydration; S42.032A Displaced fracture of lateral end of left clavicle, initial encounter for closed fracture; S01.112A Laceration without foreign body of left eyelid and periocular area, initial encounter; Z86.73 Personal history of transient ischemic attack (TIA), and cerebral infarction without residual deficits; W01.0XXA Fall on same level from slipping, tripping and stumbling without subsequent striking against object, initial encounter; Z59.0 Homelessness; L85.3 Xerosis cutis; M20.41 Other hammer toe(s) (acquired), right foot; M20.42 Other hammer toe(s) (acquired), left foot; L60.3 Nail dystrophy; M79.672 Pain in left foot; M79.671 Pain in right foot; S80.222A Blister (nonthermal), left knee, initial encounter; X58.XXXA Exposure to other specified factors, initial encounter; Y93.9 Activity, unspecified; Y92.89 Other specified places as the place of occurrence of the external cause; S50.312A Abrasion of left elbow, initial encounter; Z68.22 Body mass index [BMI] 22.0-22.9, adult; Y90.0 Blood alcohol level of less than 20 mg/100 ml; M50.30 Other cervical disc degeneration, unspecified cervical region; Z91.81 History of falling; D63.8 Anemia in other chronic diseases classified elsewhere; M50.323 Other cervical disc degeneration at C6-C7 level; J98.11 Atelectasis
CPT/HCPCS: 36415; 70450-TC; 71045-TC; 72125-TC; 73030-TC; 80048-TC; 80053-TC; 80061-TC; 80076-TC; 80202-TC; 80305; 81000-TC; 83605-TC; 83735-TC; 84100-TC; 85025-TC; 87040-TC; 87081-TC; 87086-TC; 87186-TC; 90715; 97116-TC; 97530-TC; A6248; A6403; G0378; G0480; J0696; J3370; J3475; J3490; J7030; J7060